=== PATIENT | female | born 1990 | race Caucasian/White ===

== ENCOUNTER 2020-01-15 11:08 | Observation (INO) ==
[2020-01-15] MEDS ORDERED: Morphine Sulfate 2 MG/ML SYRINGE IVP ONE (11:31)
[2020-01-15] MEDS ORDERED: hydrOXYzine pamoate 25 MG CAPSULE PO STA (11:34)
[2020-01-15 11:47] LABS: Basophils # 0.1 K/mcL (0.0-0.2); Basophils % 0.4 %; Eosinophils # 0.1 K/mcL (0.0-0.6); Eosinophils % 0.7 %; Hemoglobin 14.2 g/dL (11.5-15.4); Immature Granulocytes % 0.4 % (0-4); Lymphocytes # 2.9 K/mcL (0.6-4.6); Lymphocytes % 21.9 %; Mean Corpuscular HGB Conc 33.8 g/dL (31.6-35.5); Mean Corpuscular Hemoglobin 29.5 pg (28.0-33.3); Mean Corpuscular Volume 87.1 fL (83.0-100.0); Mean Platelet Volume 10.1 fL (9.4-12.4); Monocytes # 0.8 K/mcL (0.0-1.3); Monocytes % 6.3 %; Neutrophils # 9.2 K/mcL (1.6-8.9); Platelet Count 368 K/mcL (140-400); Red Blood Count 4.82 M/mcL (3.82-4.97); Segmented Neutrophils % 70.3 %; White Blood Count 13.1 K/mcL (4.3-11.1)
[2020-01-15 12:14] LABS: Alanine Aminotransferase 24 Units/L (7-52); Albumin 4.6 g/dL (3.5-5.7); Albumin/Globulin Ratio 1.5 (1.1-2.2); Alkaline Phosphatase 64 Units/L (34-104); Aspartate Amino Transferase 20 Units/L (13-39); BUN/Creatinine Ratio 8 (6-26); Bilirubin,Total 0.7 mg/dL (0.3-1.0); Blood Urea Nitrogen 6 mg/dL (6-20); Carbon Dioxide 22 mEq/L (23-29); Chloride 101 mEq/L (98-107); Globulin 3.1 g/dL (2.4-3.5); Glucose 180 mg/dL (70-105); Osmolality,Calculated 288 (280-300); Potassium 2.6 mEq/L (3.5-5.1); Sodium 138 mEq/L (136-145); Total Protein 7.7 g/dL (6.4-8.9); Troponin I < 0.03 ng/mL (< 0.04); eGFR For African Americans > 60 (> 60); eGFR For Non-African Americans > 60 (> 60)
[2020-01-15 12:28] LABS: INR 1.2; Prothrombin Time 13.5 Seconds (9.4-12.1)
[2020-01-15 12:31] LABS: Activated Partial Thrombo Time 31.2 Seconds (26.0-36.0)
[2020-01-15 12:43] LABS: Lipase 11 Units/L (11-82)
[2020-01-15] MEDS ORDERED: Melatonin 3 MG TABLET PO SCH (12:45)
[2020-01-15] MEDS ORDERED: Naloxone 0.4 MG/ML INJ IVP PRN (13:17)
[2020-01-15 14:28] LABS: Chol/HDL Ratio 3.4 (0-4.9); Cholesterol 113 mg/dL (< 200); HDL Cholesterol 33 mg/dL (40-59); LDL Cholesterol,Calculated 59 mg/dL (< 100); Triglycerides 107 mg/dL (< 150)
[2020-01-15 14:42] LABS: Bilirubin,Urine Negative (Negative); Blood,Urine Negative (Negative); Clarity,Urine Clear (Clear); Color,Urine Colorless (Yellow); Glucose,Urine (UA) Normal (Normal); Ketones,Urine Negative (Negative); Leukocyte Esterase,Urine Negative (Negative); Nitrite,Urine Negative (Negative); PH,Urine 7.5 pH Units (5.0-8.0); Protein,Urine Negative (Neg-Trace); Specific Gravity,Urine 1.005 (1.010-1.025); Urobilinogen,Urine Normal (Normal)
[2020-01-15] MEDS ORDERED: GI Cocktail 40 ML EACH PO ONE (14:56)
[2020-01-15] MEDS ORDERED: Ondansetron ODT 4 MG TAB.RAPDIS SL PRN (15:09)
[2020-01-15] MEDS ORDERED: Melatonin 3 MG TABLET PO PRN (15:09)
[2020-01-15] MEDS ORDERED: Dextrose Gel 15 GM/37.5 ML TUBE PO PRN ×2 (15:17)
[2020-01-15] MEDS ORDERED: *HR* Dextrose 50 % in Water (Vial) 50 ML VIAL IVP PRN (15:17)
[2020-01-15] MEDS ORDERED: D5% in Water 1,000 ML IVC PRN (15:17)
[2020-01-15 16:03] LABS: Estimated Average Glucose 134 mg/dl
[2020-01-15] MEDS ORDERED: *HR* Rivaroxaban 10 MG TABLET PO SCH (17:00)
[2020-01-15] MEDS: Insulin LISPRO 300 UNITS/3 ML VIAL SQ SCH (17:11)
[2020-01-15] MEDS: Metoprolol XL (24 HR) Succ 25 MG TAB.ER.24H PO SCH ×2 (17:14→17:17)
[2020-01-15] MEDS: Pantoprazole 40 MG VIAL IVP SCH (17:16)
[2020-01-15] MEDS: lamoTRIgine 100 MG TABLET PO SCH ×2 (17:30→20:01)
[2020-01-15] MEDS ORDERED: Insulin LISPRO 300 UNITS/3 ML VIAL SQ SCH (21:00)
[2020-01-15 21:14] LABS: BUN/Creatinine Ratio 7 (6-26); Blood Urea Nitrogen 4 mg/dL (6-20); Calcium 9.6 mg/dL (8.6-10.3); Carbon Dioxide 21 mEq/L (23-29); Chloride 107 mEq/L (98-107); Glucose 122 mg/dL (70-105); Osmolality,Calculated 284 (280-300); Potassium 3.9 mEq/L (3.5-5.1); Sodium 138 mEq/L (136-145); eGFR For African Americans > 60 (> 60); eGFR For Non-African Americans > 60 (> 60)
[2020-01-16 01:31] LABS: Basophils % 0.2 %; Eosinophils % 0.1 %; Hematocrit 41.6 % (35.3-44.9); Hemoglobin 13.9 g/dL (11.5-15.4); Immature Granulocytes % 0.2 % (0-4); Lymphocytes # 1.6 K/mcL (0.6-4.6); Mean Corpuscular HGB Conc 33.4 g/dL (31.6-35.5); Mean Corpuscular Hemoglobin 29.6 pg (28.0-33.3); Mean Corpuscular Volume 88.5 fL (83.0-100.0); Mean Platelet Volume 10.3 fL (9.4-12.4); Monocytes # 0.6 K/mcL (0.0-1.3); Platelet Count 280 K/mcL (140-400); Red Cell Distribution Width 13.1 % (11.5-14.5); Segmented Neutrophils % 77.5 %; White Blood Count 10.3 K/mcL (4.3-11.1)
[2020-01-16 01:48] LABS: BUN/Creatinine Ratio 7 (6-26); Blood Urea Nitrogen 4 mg/dL (6-20); Calcium 9.6 mg/dL (8.6-10.3); Carbon Dioxide 23 mEq/L (23-29); Chloride 105 mEq/L (98-107); Glucose 121 mg/dL (70-105); Magnesium 2.1 mg/dL (1.6-2.6); Osmolality,Calculated 284 (280-300); Phosphorous 3.5 mg/dL (2.7-4.5); Potassium 3.5 mEq/L (3.5-5.1); Sodium 138 mEq/L (136-145); eGFR For African Americans > 60 (> 60); eGFR For Non-African Americans > 60 (> 60)
[2020-01-16] MEDS: Pantoprazole 40 MG VIAL IVP SCH (04:39)
[2020-01-16] MEDS ORDERED: Ondansetron ODT 4 MG TAB.RAPDIS SL PRN (07:02)
[2020-01-16 07:14] VITALS: BP 145/86
[2020-01-16] MEDS: Insulin LISPRO 300 UNITS/3 ML VIAL SQ SCH (08:15)
[2020-01-16] MEDS: Metoprolol XL (24 HR) Succ 25 MG TAB.ER.24H PO SCH (08:19)
[2020-01-16] MEDS ORDERED: Perflutren Lipid Microsphere 1.3 ML in 0.9 % Sodium Chloride 8.7 ML IVP PRN (08:53)
[2020-01-16] MEDS ORDERED: Cholecalciferol (D-3) 1,000 UNIT (25MCG) TABLET PO SCH (09:00)
[2020-01-16] MEDS ORDERED: Mirtazapine 15 MG TABLET PO SCH (21:00)
== END 2020-01-16 10:15 | disposition home or self-care (01) ==
LOC: EMEROOARM 11:08 → 3BNU 11:08 → SUATTDRO 15:46 → 3BNU 16:45
PROVIDERS: ADMIT Internal Medicine; ATTEND Internal Medicine

== ENCOUNTER 2020-02-15 14:04 | Inpatient (IN) ==
[2020-02-15 14:38] LABS: Bilirubin,Urine Moderate (Negative); Blood,Urine Negative (Negative); Clarity,Urine Clear (Clear); Color,Urine Yellow (Yellow); Glucose,Urine (UA) Normal (Normal); Ketones,Urine 15 mg/dL (Negative); Leukocyte Esterase,Urine Negative (Negative); Nitrite,Urine Negative (Negative); PH,Urine 5.5 pH Units (5.0-8.0); Protein,Urine 30 mg/dL (Neg-Trace); Specific Gravity,Urine >= 1.030 (1.010-1.025); Urobilinogen,Urine Normal (Normal)
[2020-02-15 14:48] LABS: Amphetamine Screen,Urine Negative ng/mL (Cutoff=1000); Bacteria,Urine Few per hpf (None-Few); Barbiturate Screen,Urine Negative ng/mL (Cutoff=200); Benzodiazepines Screen,Urine Negative ng/mL (Cutoff=200); Calcium Oxalate Crystals,Urine Present; Cannabinoid Screen,Urine Positive ng/mL (Cutoff = 50); Cocaine Screen,Urine Negative ng/mL (Cutoff= 300); Hyaline Casts,Urine Few per lpf (None Seen); Mucus,Urine Few per lpf (None-Few); Opiate Screen,Urine Negative ng/mL (Cutoff=300); Phencyclidine Screen,Urine Negative ng/mL (Cutoff=25); Squamous Epithelial Cell,Urine Many per hpf (None-Few)
[2020-02-15 15:14] LABS: Acetaminophen < 10 mcg/mL (10-20); BUN/Creatinine Ratio 16 (6-26); Blood Urea Nitrogen 11 mg/dL (6-20); Calcium 10.3 mg/dL (8.6-10.3); Carbon Dioxide 23 mEq/L (23-29); Chloride 104 mEq/L (98-107); Chol/HDL Ratio 3.5 (0-4.9); Cholesterol 118 mg/dL (< 200); Ethanol < 10 mg/dL (Less than 10); Glucose 119 mg/dL (70-105); HDL Cholesterol 34 mg/dL (40-59); LDL Cholesterol,Calculated 68 mg/dL (< 100); Osmolality,Calculated 291 (280-300); Potassium 3.5 mEq/L (3.5-5.1); Salicylate < 2.5 mg/dL (15.0-30.0); Sodium 140 mEq/L (136-145); Triglycerides 82 mg/dL (< 150); Troponin I < 0.03 ng/mL (< 0.04); eGFR For African Americans > 60 (> 60); eGFR For Non-African Americans > 60 (> 60)
[2020-02-15 15:28] LABS: Basophils % 0.2 %; Eosinophils % 0.1 %; Hematocrit 41.8 % (35.3-44.9); Hemoglobin 14.1 g/dL (11.5-15.4); Immature Granulocytes % 0.5 % (0-4); Lymphocytes # 2.1 K/mcL (0.6-4.6); Lymphocytes % 14.9 %; Mean Corpuscular HGB Conc 33.7 g/dL (31.6-35.5); Mean Corpuscular Hemoglobin 29.1 pg (28.0-33.3); Mean Corpuscular Volume 86.4 fL (83.0-100.0); Mean Platelet Volume 9.8 fL (9.4-12.4); Monocytes % 7.2 %; Neutrophils # 11.1 K/mcL (1.6-8.9); Platelet Count 288 K/mcL (140-400); Red Blood Count 4.84 M/mcL (3.82-4.97); Red Cell Distribution Width 13.4 % (11.5-14.5); Segmented Neutrophils % 77.1 %; White Blood Count 14.3 K/mcL (4.3-11.1)
[2020-02-15 16:46] LABS: Estimated Average Glucose 134 mg/dl
[2020-02-15] MEDS ORDERED: Mag Hydrox/Al Hydrox/Simeth 30 ML UDC PO PRN (17:47)
[2020-02-15] MEDS ORDERED: *HR* LORazepam 2 MG/ML VIAL IM PRN (17:47)
[2020-02-15] MEDS ORDERED: traZODone 50 MG TABLET PO PRN (17:47)
[2020-02-15] MEDS ORDERED: Haloperidol Lactate 5 MG/ML VIAL IM PRN (17:47)
[2020-02-15] MEDS ORDERED: Acetaminophen 325 MG TABLET PO PRN (17:47)
[2020-02-15] MEDS ORDERED: haloperidoL 5 MG TABLET PO PRN (17:47)
[2020-02-15] MEDS ORDERED: hydrOXYzine pamoate 25 MG CAPSULE PO PRN (17:47)
[2020-02-15] MEDS ORDERED: MOM Conc 10 ML UD.LIQ PO PRN (17:47)
[2020-02-15] MEDS ORDERED: *HR* LORazepam 1 MG TABLET PO PRN (17:47)
[2020-02-15] MEDS ORDERED: Melatonin 3 MG TABLET PO PRN (18:17)
[2020-02-15] MEDS ORDERED: lamoTRIgine 100 MG TABLET PO SCH (21:00)
[2020-02-15] MEDS ORDERED: lamoTRIgine 25 MG TABLET PO ONE (21:00)
[2020-02-15] MEDS ORDERED: Melatonin 3 MG TABLET PO ONE (21:00)
[2020-02-15] MEDS: Mirtazapine 15 MG TABLET PO SCH (21:48)
[2020-02-16] MEDS: Metoprolol XL (24 HR) Succ 50 MG TAB.ER.24H PO SCH (08:24)
[2020-02-16] MEDS: Cholecalciferol (D-3) 1,000 UNIT (25MCG) TABLET PO SCH (08:24)
[2020-02-16] MEDS: *HR* Rivaroxaban 10 MG TABLET PO SCH (17:07)
[2020-02-16] MEDS: Mirtazapine 15 MG TABLET PO SCH (20:50)
[2020-02-16] MEDS: lamoTRIgine 100 MG TABLET PO SCH (20:50)
[2020-02-16] MEDS: Melatonin 3 MG TABLET PO PRN (20:51)
[2020-02-17] MEDS: Cholecalciferol (D-3) 1,000 UNIT (25MCG) TABLET PO SCH (09:20)
[2020-02-17] MEDS: Metoprolol XL (24 HR) Succ 50 MG TAB.ER.24H PO SCH (09:20)
[2020-02-17] MEDS: *HR* Rivaroxaban 10 MG TABLET PO SCH (17:27)
[2020-02-17] MEDS: Mirtazapine 15 MG TABLET PO SCH (20:19)
[2020-02-17] MEDS: lamoTRIgine 100 MG TABLET PO SCH (20:20)
[2020-02-17] MEDS: Melatonin 3 MG TABLET PO PRN (20:20)
[2020-02-18] MEDS: Metoprolol XL (24 HR) Succ 50 MG TAB.ER.24H PO SCH (08:17)
[2020-02-18] MEDS: Cholecalciferol (D-3) 1,000 UNIT (25MCG) TABLET PO SCH (08:17)
[2020-02-18 08:21] VITALS: BP 132/76
[2020-02-18] MEDS: *HR* Rivaroxaban 10 MG TABLET PO SCH (17:14)
[2020-02-19] MEDS ORDERED: Cholecalciferol (D-3) 1,000 UNIT (25MCG) TABLET PO SCH (09:00)
[2020-02-19] MEDS ORDERED: NON-FORMULARY MEDICATION 1 EACH EACH (Rivaroxaban [Xarelto] 20 MG) PO SCH (09:00)
[2020-02-19] MEDS ORDERED: Mirtazapine 15 MG TABLET PO SCH (09:00)
== END 2020-02-18 19:08 | disposition other institution (70) | DRG 753 ==
LOC: EMEROOARM 14:04 → 1ANU 17:36 → SUATTDRO 17:36 → 1ANU 17:43
PROVIDERS: ADMIT Psychiatry & Neurology Psychiatry; ATTEND Psychiatry & Neurology Forensic Psychiatry

== ENCOUNTER 2020-02-18 21:28 | Observation (INO) ==
[2020-02-18 22:02] LABS: Basophils % 0.3 %; Eosinophils # 0.1 K/mcL (0.0-0.6); Eosinophils % 0.6 %; Hematocrit 41.3 % (35.3-44.9); Hemoglobin 13.9 g/dL (11.5-15.4); Immature Granulocytes % 0.3 % (0-4); Lymphocytes % 17.1 %; Mean Corpuscular HGB Conc 33.7 g/dL (31.6-35.5); Mean Corpuscular Hemoglobin 29.8 pg (28.0-33.3); Mean Corpuscular Volume 88.6 fL (83.0-100.0); Mean Platelet Volume 10.5 fL (9.4-12.4); Monocytes # 0.8 K/mcL (0.0-1.3); Monocytes % 6.9 %; Neutrophils # 8.7 K/mcL (1.6-8.9); Platelet Count 260 K/mcL (140-400); Red Blood Count 4.66 M/mcL (3.82-4.97); Red Cell Distribution Width 13.6 % (11.5-14.5); Segmented Neutrophils % 74.8 %; White Blood Count 11.6 K/mcL (4.3-11.1)
[2020-02-18 22:19] LABS: Acetaminophen < 10 mcg/mL (10-20); BUN/Creatinine Ratio 13 (6-26); Blood Urea Nitrogen 9 mg/dL (6-20); Calcium 9.6 mg/dL (8.6-10.3); Carbon Dioxide 25 mEq/L (23-29); Chloride 104 mEq/L (98-107); Ethanol < 10 mg/dL (Less than 10); Glucose 139 mg/dL (70-105); Magnesium 1.7 mg/dL (1.6-2.6); Osmolality,Calculated 291 (280-300); Potassium 3.3 mEq/L (3.5-5.1); Salicylate < 2.5 mg/dL (15.0-30.0); Sodium 140 mEq/L (136-145); eGFR For African Americans > 60 (> 60); eGFR For Non-African Americans > 60 (> 60)
[2020-02-18 23:04] LABS: Bilirubin,Urine Moderate (Negative); Blood,Urine Negative (Negative); Clarity,Urine Slightly Cloudy (Clear); Color,Urine Yellow (Yellow); Glucose,Urine (UA) Normal (Normal); Ketones,Urine 40 mg/dL (Negative); Leukocyte Esterase,Urine Negative (Negative); Nitrite,Urine Negative (Negative); PH,Urine 5.5 pH Units (5.0-8.0); Protein,Urine 30 mg/dL (Neg-Trace); Specific Gravity,Urine >= 1.030 (1.010-1.025); Urobilinogen,Urine Normal (Normal)
[2020-02-18 23:12] LABS: Bacteria,Urine Few per hpf (None-Few); Calcium Oxalate Crystals,Urine Present; Mucus,Urine Many per lpf (None-Few); Squamous Epithelial Cell,Urine Moderate per hpf (None-Few)
[2020-02-18 23:16] LABS: Amphetamine Screen,Urine Negative ng/mL (Cutoff=1000); Barbiturate Screen,Urine Negative ng/mL (Cutoff=200); Benzodiazepines Screen,Urine Negative ng/mL (Cutoff=200); Cannabinoid Screen,Urine Positive ng/mL (Cutoff = 50); Cocaine Screen,Urine Negative ng/mL (Cutoff= 300); Opiate Screen,Urine Negative ng/mL (Cutoff=300); Phencyclidine Screen,Urine Negative ng/mL (Cutoff=25)
[2020-02-18] MEDS ORDERED: *HR* LORazepam 1 MG TABLET PO ONE (23:19)
[2020-02-19] MEDS ORDERED: Naloxone 0.4 MG/ML INJ IVP PRN (01:21)
[2020-02-19] MEDS ORDERED: hydrOXYzine pamoate 25 MG CAPSULE PO PRN (02:57)
[2020-02-19] MEDS ORDERED: lamoTRIgine 100 MG TABLET PO SCH (03:00)
[2020-02-19] MEDS ORDERED: 0.9 % Sodium Chloride 1,000 ML IVC SCH (04:00)
[2020-02-19] MEDS ORDERED: *HR* Promethazine 25 MG/ML VIAL IVP PRN (04:00)
[2020-02-19] MEDS ORDERED: Acetaminophen 325 MG TABLET PO PRN (04:00)
[2020-02-19 05:23] LABS: Hematocrit 37.8 % (35.3-44.9); Hemoglobin 12.6 g/dL (11.5-15.4); Mean Corpuscular HGB Conc 33.3 g/dL (31.6-35.5); Mean Corpuscular Hemoglobin 29.3 pg (28.0-33.3); Mean Corpuscular Volume 87.9 fL (83.0-100.0); Mean Platelet Volume 10.3 fL (9.4-12.4); Platelet Count 215 K/mcL (140-400); Red Cell Distribution Width 13.6 % (11.5-14.5); White Blood Count 7.1 K/mcL (4.3-11.1)
[2020-02-19 05:34] LABS: Activated Partial Thrombo Time 42.2 Seconds (26.0-36.0)
[2020-02-19 05:35] LABS: INR 2.2; Prothrombin Time 25.3 Seconds (9.4-12.1)
[2020-02-19 05:42] LABS: BUN/Creatinine Ratio 12 (6-26); Blood Urea Nitrogen 8 mg/dL (6-20); Calcium 9.2 mg/dL (8.6-10.3); Carbon Dioxide 28 mEq/L (23-29); Chloride 106 mEq/L (98-107); Glucose 96 mg/dL (70-105); Osmolality,Calculated 292 (280-300); Phosphorous 3.9 mg/dL (2.7-4.5); Potassium 3.8 mEq/L (3.5-5.1); Sodium 142 mEq/L (136-145); eGFR For African Americans > 60 (> 60); eGFR For Non-African Americans > 60 (> 60)
[2020-02-19] MEDS ORDERED: Metoprolol XL (24 HR) Succ 50 MG TAB.ER.24H PO SCH (09:00)
[2020-02-19] MEDS ORDERED: Mirtazapine 15 MG TABLET PO SCH (09:00)
[2020-02-19] MEDS ORDERED: *HR* Rivaroxaban 10 MG TABLET PO SCH (09:00)
[2020-02-19 15:41] VITALS: BP 123/77
== END 2020-02-19 18:06 | disposition home or self-care (01) ==
LOC: EMEROOARM 21:28 → 3BNU 21:28 → SUATTDRO 02-19 00:27 → 3BNU 02-19 01:52
PROVIDERS: ADMIT Student in an Organized Health Care Education/Training Program; ATTEND Internal Medicine

== ENCOUNTER 2020-03-03 20:11 | Observation (INO) ==
[2020-03-03] MEDS ORDERED: Ondansetron 4 MG/2 ML VIAL IVP ONE (23:08)
[2020-03-03] MEDS ORDERED: Famotidine 20 MG/2 ML VIAL IVP ONE (23:08)
[2020-03-03] MEDS ORDERED: 0.9 % Sodium Chloride 1,000 ML IVC ONE (23:09)
[2020-03-03 23:36] LABS: Basophils % 0.3 %; Eosinophils % 0.2 %; Hematocrit 45.5 % (35.3-44.9); Hemoglobin 15.6 g/dL (11.5-15.4); Immature Granulocytes % 0.5 % (0-4); Lymphocytes # 2.5 K/mcL (0.6-4.6); Lymphocytes % 20.6 %; Mean Corpuscular HGB Conc 34.3 g/dL (31.6-35.5); Mean Corpuscular Hemoglobin 29.3 pg (28.0-33.3); Mean Corpuscular Volume 85.5 fL (83.0-100.0); Mean Platelet Volume 11.1 fL (9.4-12.4); Monocytes % 8.3 %; Neutrophils # 8.6 K/mcL (1.6-8.9); Platelet Count 345 K/mcL (140-400); Red Blood Count 5.32 M/mcL (3.82-4.97); Red Cell Distribution Width 13.3 % (11.5-14.5); Segmented Neutrophils % 70.1 %; White Blood Count 12.2 K/mcL (4.3-11.1)
[2020-03-03 23:44] LABS: Alanine Aminotransferase 20 Units/L (7-52); Albumin 4.9 g/dL (3.5-5.7); Albumin/Globulin Ratio 1.5 (1.1-2.2); Alkaline Phosphatase 64 Units/L (34-104); Aspartate Amino Transferase 23 Units/L (13-39); BUN/Creatinine Ratio 17 (6-26); Bilirubin,Direct 0.3 mg/dL (0.0-0.2); Bilirubin,Indirect 0.9 mg/dL (0.0-1.0); Bilirubin,Total 1.2 mg/dL (0.3-1.0); Blood Urea Nitrogen 14 mg/dL (6-20); Calcium 10.2 mg/dL (8.6-10.3); Carbon Dioxide 26 mEq/L (23-29); Chloride 92 mEq/L (98-107); Globulin 3.2 g/dL (2.4-3.5); Glucose 117 mg/dL (70-105); Lipase 14 Units/L (11-82); Osmolality,Calculated 282 (280-300); Potassium 2.8 mEq/L (3.5-5.1); Sodium 135 mEq/L (136-145); Total Protein 8.1 g/dL (6.4-8.9); eGFR For African Americans > 60 (> 60); eGFR For Non-African Americans > 60 (> 60)
[2020-03-04 00:19] LABS: Amorphous Sediment,Urine Few per hpf (None-Few); Bacteria,Urine Few per hpf (None-Few); Bilirubin,Urine Small (Negative); Blood,Urine Trace (Negative); Clarity,Urine Turbid (Clear); Color,Urine Yellow (Yellow); Glucose,Urine (UA) Normal (Normal); Hyaline Casts,Urine Few per lpf (None Seen); Ketones,Urine 40 mg/dL (Negative); Leukocyte Esterase,Urine Trace (Negative); Mucus,Urine Few per lpf (None-Few); Nitrite,Urine Negative (Negative); PH,Urine 5.5 pH Units (5.0-8.0); Protein,Urine 100 mg/dL (Neg-Trace); Specific Gravity,Urine 1.028 (1.010-1.025); Squamous Epithelial Cell,Urine Moderate per hpf (None-Few)
[2020-03-04] MEDS ORDERED: Naloxone 0.4 MG/ML INJ IVP PRN (02:05)
[2020-03-04 02:11] LABS: Candida DNA Not Detected (Not Detect); Gardnerella DNA Not Detected (Not Detect); Trichomonas DNA Not Detected (Not Detect)
[2020-03-04 02:11] LABS: Adenovirus Not Detected (Not Detect); Bordetella Pertussis Not Detected (Not Detect); Chlamydophila pneumoniae Not Detected (Not Detect); Coronavirus 229E Not Detected (Not Detect); Coronavirus HKU1 Not Detected (Not Detect); Coronavirus NL63 Not Detected (Not Detect); Coronavirus OC43 Not Detected (Not Detect); Human Metapneumovirus Not Detected (Not Detect); Human Rhinovirus/Enterovirus Not Detected (Not Detect); Influenza A Subtype 2009 H1 Not Detected (Not Detect); Influenza B Not Detected (Not Detect); Mycoplasma pneumoniae Not Detected (Not Detect); Parainfluenza Virus 1 Not Detected (Not Detect); Parainfluenza Virus 2 Not Detected (Not Detect); Parainfluenza Virus 3 Not Detected (Not Detect); Parainfluenza Virus 4 Not Detected (Not Detect); Respiratory Syncytial Virus Not Detected (Not Detect); SARS-CoV-2 Not Detected (Not Detect)
[2020-03-04] MEDS: *HR* Promethazine 25 MG/ML VIAL IVP PRN (03:03)
[2020-03-04] MEDS: 0.9 % Sodium Chloride 1,000 ML IVC SCH ×2 (03:47→13:29)
[2020-03-04] MEDS: cefTRIAXone 1,000 MG in 0.9 % Sodium Chloride Mini Bag 100 ML IVPB SCH (06:09)
[2020-03-04 07:07] LABS: Basophils % 0.4 %; Eosinophils % 0.3 %; Hematocrit 38.4 % (35.3-44.9); Immature Granulocytes % 0.4 % (0-4); Lymphocytes # 1.8 K/mcL (0.6-4.6); Lymphocytes % 19.6 %; Mean Corpuscular HGB Conc 35.2 g/dL (31.6-35.5); Mean Corpuscular Hemoglobin 30.6 pg (28.0-33.3); Mean Corpuscular Volume 87.1 fL (83.0-100.0); Mean Platelet Volume 11.4 fL (9.4-12.4); Monocytes # 0.8 K/mcL (0.0-1.3); Monocytes % 8.5 %; Neutrophils # 6.4 K/mcL (1.6-8.9); Platelet Count 234 K/mcL (140-400); Red Blood Count 4.41 M/mcL (3.82-4.97); Red Cell Distribution Width 13.4 % (11.5-14.5); Segmented Neutrophils % 70.8 %; White Blood Count 9.1 K/mcL (4.3-11.1)
[2020-03-04 07:16] LABS: Hemoglobin 13.5 g/dL (11.5-15.4)
[2020-03-04 07:30] LABS: Alanine Aminotransferase 16 Units/L (7-52); Albumin/Globulin Ratio 1.5 (1.1-2.2); Alkaline Phosphatase 52 Units/L (34-104); Aspartate Amino Transferase 18 Units/L (13-39); BUN/Creatinine Ratio 18 (6-26); Bilirubin,Total 0.9 mg/dL (0.3-1.0); Blood Urea Nitrogen 12 mg/dL (6-20); Calcium 9.1 mg/dL (8.6-10.3); Carbon Dioxide 23 mEq/L (23-29); Chloride 98 mEq/L (98-107); Globulin 2.7 g/dL (2.4-3.5); Glucose 101 mg/dL (70-105); Magnesium 1.6 mg/dL (1.6-2.6); Osmolality,Calculated 278 (280-300); Phosphorous 3.2 mg/dL (2.7-4.5); Potassium 3.3 mEq/L (3.5-5.1); Sodium 134 mEq/L (136-145); Total Protein 6.7 g/dL (6.4-8.9); eGFR For African Americans > 60 (> 60); eGFR For Non-African Americans > 60 (> 60)
[2020-03-04 07:34] LABS: Thyroid Stimulating Hormone 2.716 mcIU/mL (0.340-5.600)
[2020-03-04] MEDS: Cholecalciferol (D-3) 1,000 UNIT (25MCG) TABLET PO SCH (08:52)
[2020-03-04] MEDS: Mirtazapine 15 MG TABLET PO SCH (08:52)
[2020-03-04] MEDS: *HR* Rivaroxaban 10 MG TABLET PO SCH (08:52)
[2020-03-04] MEDS: Metoprolol XL (24 HR) Succ 50 MG TAB.ER.24H PO SCH (08:52)
[2020-03-04] MEDS: hydrOXYzine pamoate 25 MG CAPSULE PO PRN ×2 (09:00→18:29)
[2020-03-04 10:13] LABS: Adenovirus F 40/41 PCR Not detected (Not detect); Astrovirus PCR Not detected (Not detect); C.difficile Toxin A/B Gene PCR Not detected (Not detect); Campylobacter by PCR Not detected (Not detect); Cryptosporidium by PCR Not detected (Not detect); Cyclospora cayetanensis PCR Not detected (Not detect); E. coli O157 by PCR Not detected (Not detect); Entamoeba histolytica PCR Not detected (Not detect); Enteroaggregative E.coli(EAEC) Not detected (Not detect); Enteropathogenic E.coli(EPEC) Not detected (Not detect); Enterotoxigenic E.coli (ETEC) Not detected (Not detect); Giardia lamblia PCR Not detected (Not detect); Norovirus GI/GII PCR Not detected (Not detect); Plesiomonas shigelloides PCR Not detected (Not detect); Rotavirus A PCR Not detected (Not detect); Salmonella PCR Not detected (Not detect); Sapovirus PCR Not detected (Not detect); Shig/EnteroinvasiveE coli EIEC Not detected (Not detect); Shigalike tox-prod E coli STEC Not detected (Not detect); Vibrio PCR Not detected (Not detect); Vibrio cholerae PCR Not detected (Not detect); Yersinia enterocolitica PCR Not detected (Not detect)
[2020-03-04] MEDS: predniSONE 10 MG TABLET PO SCH (18:27)
[2020-03-04] MEDS ORDERED: Melatonin 3 MG TABLET PO SCH (21:00)
[2020-03-04] MEDS ORDERED: lamoTRIgine 100 MG TABLET PO SCH (21:00)
[2020-03-05] MEDS: cefTRIAXone 1,000 MG in 0.9 % Sodium Chloride Mini Bag 100 ML IVPB SCH (02:57)
[2020-03-05 08:12] VITALS: BP 138/78
[2020-03-05 08:39] LABS: Hematocrit 42.3 % (35.3-44.9); Hemoglobin 13.9 g/dL (11.5-15.4); Mean Corpuscular HGB Conc 32.9 g/dL (31.6-35.5); Mean Corpuscular Hemoglobin 29.7 pg (28.0-33.3); Mean Corpuscular Volume 90.4 fL (83.0-100.0); Mean Platelet Volume 11.1 fL (9.4-12.4); Platelet Count 248 K/mcL (140-400); Red Blood Count 4.68 M/mcL (3.82-4.97); Red Cell Distribution Width 13.8 % (11.5-14.5); White Blood Count 8.9 K/mcL (4.3-11.1)
[2020-03-05] MEDS: *HR* Rivaroxaban 10 MG TABLET PO SCH (08:43)
[2020-03-05] MEDS: hydrOXYzine pamoate 25 MG CAPSULE PO PRN (08:43)
[2020-03-05] MEDS: Cholecalciferol (D-3) 1,000 UNIT (25MCG) TABLET PO SCH (08:44)
[2020-03-05] MEDS: Metoprolol XL (24 HR) Succ 50 MG TAB.ER.24H PO SCH (08:44)
[2020-03-05] MEDS: Mirtazapine 15 MG TABLET PO SCH (08:44)
[2020-03-05] MEDS: predniSONE 10 MG TABLET PO SCH (08:45)
[2020-03-05] MEDS: *HR* Promethazine 25 MG/ML VIAL IVP PRN (08:49)
[2020-03-05] MEDS ORDERED: LAMOTRIGINE 200 MG PO SCH (09:00)
[2020-03-05 09:02] LABS: BUN/Creatinine Ratio 10 (6-26); Blood Urea Nitrogen 7 mg/dL (6-20); Calcium 9.5 mg/dL (8.6-10.3); Carbon Dioxide 28 mEq/L (23-29); Chloride 106 mEq/L (98-107); Glucose 119 mg/dL (70-105); Osmolality,Calculated 285 (280-300); Potassium 4.2 mEq/L (3.5-5.1); Sodium 138 mEq/L (136-145); eGFR For African Americans > 60 (> 60); eGFR For Non-African Americans > 60 (> 60)
== END 2020-03-05 13:38 | disposition home or self-care (01) ==
LOC: CDU 20:11 → EMEROOARM 20:11 → SUATTDRO 03-04 00:49 → CDU 03-04 02:52 → 3BNU 03-04 14:53
PROVIDERS: ADMIT Internal Medicine; ATTEND Internal Medicine

== ENCOUNTER 2020-08-18 08:55 | Observation (INO) ==
[2020-08-18 09:53] LABS: Basophils % 0.3 %; Eosinophils # 0.1 K/mcL (0.0-0.6); Eosinophils % 2.1 %; Hematocrit 39.2 % (35.3-44.9); Immature Granulocytes % 0.2 % (0-4); Lymphocytes # 1.4 K/mcL (0.6-4.6); Lymphocytes % 22.7 %; Mean Corpuscular HGB Conc 33.2 g/dL (31.6-35.5); Mean Corpuscular Hemoglobin 29.2 pg (28.0-33.3); Mean Corpuscular Volume 88.1 fL (83.0-100.0); Mean Platelet Volume 10.2 fL (9.4-12.4); Monocytes # 0.4 K/mcL (0.0-1.3); Monocytes % 7.1 %; Neutrophils # 4.2 K/mcL (1.6-8.9); Platelet Count 216 K/mcL (140-400); Red Blood Count 4.45 M/mcL (3.82-4.97); Red Cell Distribution Width 12.5 % (11.5-14.5); Segmented Neutrophils % 67.6 %; White Blood Count 6.2 K/mcL (4.3-11.1)
[2020-08-18 10:13] LABS: Bilirubin,Urine Negative (Negative); Blood,Urine Large (Negative); Clarity,Urine Ex.Turbid (Clear); Color,Urine Brown (Yellow); Glucose,Urine (UA) Normal (Normal); Ketones,Urine Negative (Negative); Leukocyte Esterase,Urine Negative (Negative); Nitrite,Urine Negative (Negative); Protein,Urine 100 mg/dL (Neg-Trace); Specific Gravity,Urine 1.023 (1.010-1.025); Urobilinogen,Urine Normal (Normal)
[2020-08-18 10:16] LABS: Alanine Aminotransferase 7 Units/L (7-52); Albumin 4.4 g/dL (3.5-5.7); Albumin/Globulin Ratio 1.4 (1.1-2.2); Alkaline Phosphatase 56 Units/L (34-104); Aspartate Amino Transferase 12 Units/L (13-39); BUN/Creatinine Ratio 15 (6-26); Bilirubin,Direct 0.1 mg/dL (0.0-0.2); Bilirubin,Indirect 0.4 mg/dL (0.0-1.0); Bilirubin,Total 0.5 mg/dL (0.3-1.0); Blood Urea Nitrogen 10 mg/dL (6-20); Calcium 9.5 mg/dL (8.6-10.3); Carbon Dioxide 26 mEq/L (23-29); Chloride 104 mEq/L (98-107); Globulin 3.1 g/dL (2.4-3.5); Glucose 96 mg/dL (70-105); Lipase 12 Units/L (11-82); Osmolality,Calculated 285 (280-300); Potassium 4.2 mEq/L (3.5-5.1); Sodium 138 mEq/L (136-145); Total Protein 7.5 g/dL (6.4-8.9); Troponin I < 0.03 ng/mL (< 0.04); eGFR For African Americans > 60 (> 60); eGFR For Non-African Americans > 60 (> 60)
[2020-08-18] MEDS ORDERED: *HR* FentaNYL (PF) 100 MCG/2 ML VIAL IVP ONE (10:16)
[2020-08-18] MEDS ORDERED: Naloxone 0.4 MG/ML INJ IVP PRN ×2 (12:07→17:21)
[2020-08-18 12:08] LABS: Influenza A PCR Negative (Negative); Influenza B PCR Negative (Negative); Resp. Syncytial Virus PCR Negative (Negative)
[2020-08-18 12:09] LABS: SARS-CoV-2 by PCR (In House) Negative (Negative)
[2020-08-18] MEDS ORDERED: *HR* FentaNYL (PF) 100 MCG/2 ML VIAL ONE (15:11)
[2020-08-18] MEDS ORDERED: *HR* Midazolam HCl 2 MG/2 ML VIAL ONE (15:11)
[2020-08-18] MEDS ORDERED: *HR* Propofol 200 MG/20 ML VIAL IVP ONE (15:11)
[2020-08-18] MEDS ORDERED: Ondansetron 4 MG/2 ML VIAL ONE (15:12)
[2020-08-18] MEDS ORDERED: Lidocaine -MPF 2% 2 ML VIAL ONE (15:12)
[2020-08-18] MEDS ORDERED: Dexamethasone 4 MG/ML VIAL ONE (15:12)
[2020-08-18] MEDS ORDERED: *HR* PHENYLEPHRINE 1,000 MCG/10 ML SYRINGE IVP ONE (16:07)
[2020-08-18] MEDS ORDERED: *HR* OxyCODONE/APAP 5/325 TABLET PO PRN (17:21)
[2020-08-18] MEDS ORDERED: *HR* Belladonna Alkaloids/Opium 30 MG RECTAL SUPPOSITORY RC PRN (17:21)
[2020-08-18] MEDS ORDERED: Hyoscyamine SL 0.125 MG TAB.SUBL SL PRN (17:21)
[2020-08-18] MEDS ORDERED: Melatonin 3 MG TABLET PO PRN (17:31)
[2020-08-18] MEDS: Acetaminophen 325 MG TABLET PO PRN (19:58)
[2020-08-18] MEDS: Metoprolol XL (24 HR) Succ 25 MG TAB.ER.24H PO SCH (19:59)
[2020-08-18] MEDS: lamoTRIgine 100 MG TABLET PO SCH (19:59)
[2020-08-18] MEDS ORDERED: lamoTRIgine 100 MG TABLET PO SCH (21:00)
[2020-08-18] MEDS: *HR* Rivaroxaban 10 MG TABLET PO SCH ×2 (21:40→21:57)
[2020-08-18] MEDS: Ondansetron 4 MG/2 ML VIAL IVP PRN (23:23)
[2020-08-19] MEDS: Acetaminophen 325 MG TABLET PO PRN ×2 (03:23→18:15)
[2020-08-19] MEDS: *HR* OxyCODONE Immed Rel 5 MG TABLET PO PRN ×2 (03:23→10:31)
[2020-08-19 05:11] LABS: BUN/Creatinine Ratio 20 (6-26); Blood Urea Nitrogen 13 mg/dL (6-20); Calcium 10.1 mg/dL (8.6-10.3); Carbon Dioxide 22 mEq/L (23-29); Chloride 101 mEq/L (98-107); Glucose 131 mg/dL (70-105); Osmolality,Calculated 280 (280-300); Potassium 4.6 mEq/L (3.5-5.1); Sodium 134 mEq/L (136-145); eGFR For African Americans > 60 (> 60); eGFR For Non-African Americans > 60 (> 60)
[2020-08-19] MEDS: Ondansetron 4 MG/2 ML VIAL IVP PRN ×2 (08:40→18:12)
[2020-08-19] MEDS: Metoprolol XL (24 HR) Succ 25 MG TAB.ER.24H PO SCH (10:31)
[2020-08-19] MEDS ORDERED: Isovue-370 500 ML BOTTLE IVP ONE (11:47)
[2020-08-19] MEDS: *HR* Rivaroxaban 10 MG TABLET PO SCH (17:39)
[2020-08-20] MEDS: Acetaminophen 325 MG TABLET PO PRN ×4 (00:14→23:45)
[2020-08-20] MEDS: Metoprolol XL (24 HR) Succ 25 MG TAB.ER.24H PO SCH ×3 (00:15→23:45)
[2020-08-20] MEDS: Mirtazapine 15 MG TABLET PO SCH ×2 (00:15→23:46)
[2020-08-20] MEDS: lamoTRIgine 100 MG TABLET PO SCH ×2 (00:15→23:45)
[2020-08-20 06:38] LABS: BUN/Creatinine Ratio 23 (6-26); Blood Urea Nitrogen 16 mg/dL (6-20); Calcium 9.8 mg/dL (8.6-10.3); Carbon Dioxide 27 mEq/L (23-29); Chloride 98 mEq/L (98-107); Glucose 131 mg/dL (70-105); Osmolality,Calculated 287 (280-300); Potassium 3.8 mEq/L (3.5-5.1); Sodium 137 mEq/L (136-145); eGFR For African Americans > 60 (> 60); eGFR For Non-African Americans > 60 (> 60)
[2020-08-20 06:40] LABS: Basophils % 0.1 %; Eosinophils % 0.1 %; Hematocrit 43.8 % (35.3-44.9); Immature Granulocytes % 0.4 % (0-4); Lymphocytes # 1.6 K/mcL (0.6-4.6); Lymphocytes % 11.7 %; Mean Corpuscular HGB Conc 33.6 g/dL (31.6-35.5); Mean Corpuscular Hemoglobin 29.5 pg (28.0-33.3); Mean Corpuscular Volume 87.8 fL (83.0-100.0); Mean Platelet Volume 10.2 fL (9.4-12.4); Monocytes # 0.8 K/mcL (0.0-1.3); Monocytes % 6.2 %; Neutrophils # 11.1 K/mcL (1.6-8.9); Platelet Count 296 K/mcL (140-400); Red Blood Count 4.99 M/mcL (3.82-4.97); Red Cell Distribution Width 12.9 % (11.5-14.5); Segmented Neutrophils % 81.5 %
[2020-08-20 06:41] LABS: Hemoglobin 14.7 g/dL (11.5-15.4); White Blood Count 13.6 K/mcL (4.3-11.1)
[2020-08-20] MEDS: Ondansetron 4 MG/2 ML VIAL IVP PRN (08:19)
[2020-08-20] MEDS: *HR* Rivaroxaban 10 MG TABLET PO SCH (23:45)
[2020-08-21 06:56] VITALS: BP 121/74
[2020-08-21] MEDS: Acetaminophen 325 MG TABLET PO PRN (09:33)
[2020-08-21] MEDS: Metoprolol XL (24 HR) Succ 25 MG TAB.ER.24H PO SCH (09:35)
[2020-08-23 07:35] LABS: Calculi Mass 6 mg
== END 2020-08-21 10:42 | disposition home or self-care (01) ==
LOC: 3BNU 08:55 → EMEROOARM 08:55 → SUATTDRO 12:29 → 3BNU 13:19
PROVIDERS: ADMIT Family Medicine; ATTEND Internal Medicine